=== PATIENT | female | born 1970 | race Caucasian/White ===

== ENCOUNTER → 2017-08-16 | Outpatient (CLI) | payer BC | LOC: MC.RAD 16:54 | DX: Z12.31 Encounter for screening mammogram for malignant neoplasm of breast (principal); Z90.10 Acquired absence of unspecified breast and nipple ==

== ENCOUNTER → 2019-03-21 | Outpatient (CLI) | payer BC | LOC: MC.RAD 16:40 | DX: Z12.31 Encounter for screening mammogram for malignant neoplasm of breast (principal) ==

== ENCOUNTER 2019-03-24 06:40 | Day surgery (SDC) | payer BC ==
[~2019-03-24] VITALS: Ht 167.6 cm; Wt 79.8 kg
[2019-03-24 07:04] VITALS: BP 124/88; PULSE 82; TEMP 97.7
[2019-03-24] MEDS ORDERED: VITAMIN D31000 I1 PO (07:10)
[2019-03-24] MEDS ORDERED: MULTIPLE VITAMI1 TA5 PO (07:10)
[2019-03-24] MEDS ORDERED: TYLENOL 325MG325 MG PO (07:11)
[2019-03-24] MEDS ORDERED: MOTRIN 200200 MG/TAB PO (07:11)
[2019-03-24 08:15] VITALS: BP 127/86; PULSE 75; TEMP 97.9
--- NOTE | 2019-03-24 08:15 | NUR ---
Patient brought back to [facility]. Alert and oritented. Ambulated to chair without difficulty. Vital signs WNL. Denies nausea or pain. States she would like a water. Tolerating well. Will call father to come meet at hospital in order to bring her home. Call zuniga within reach, will continue to monitor.
[2019-03-24 08:30] VITALS: BP 104/73; PULSE 78
--- NOTE | 2019-03-24 08:30 | NUR ---
Tolerating drink well. No complaints. Vital signs WNL. Will continue to monitor.
[2019-03-24 08:45] VITALS: BP 98/64; PULSE 56
--- NOTE | 2019-03-24 08:45 | NUR ---
Patient states she is feeling well and ready to go home. Vital signs WNL. Tolerating drink well. Does not want anything to eat at this time. Will continue to monitor.
--- NOTE | 2019-03-24 09:14 | NUR ---
Discharge instructions reivewed with patient. All questions answered, patient to get dressed at this time.
--- NOTE | 2019-03-24 09:40 | NUR ---
Patient brought down to lobby via wheel chair. To be driven home by patients father.
== END 2019-03-24 09:40 | disposition home or self-care (01) ==
LOC: SDCO 06:40
DX: Z12.11 Encounter for screening for malignant neoplasm of colon (principal); D12.5 Benign neoplasm of sigmoid colon; K57.30 Diverticulosis of large intestine without perforation or abscess without bleeding; Z88.5 Allergy status to narcotic agent
CPT/HCPCS: J2250; J3010; J7030

== ENCOUNTER → 2020-05-14 | Outpatient (CLI) | payer BC ==
[~2020-05-14] MED LIST: MOTRIN 200200 MG/TAB PO; MULTIPLE VITAMI1 TA5 PO; TYLENOL 325MG325 MG PO; VITAMIN D31000 I1 PO
== END ==
LOC: MC.RAD 16:42
DX: Z12.31 Encounter for screening mammogram for malignant neoplasm of breast (principal)